=== PATIENT | female | born 1990 | race Caucasian/White ===

== ENCOUNTER 2019-09-26 16:23 | Emergency (ER) | payer SELFPAY ==
[~2019-09-26] VITALS: Ht 167.6 cm; Wt 59.0 kg
[2019-09-26 22:51] VITALS: BP 110/60
== END 2019-09-26 22:51 | DRG 880 ==
LOC: ED 16:23
DX: F41.0 Panic disorder [episodic paroxysmal anxiety] (principal); F15.10 Other stimulant abuse, uncomplicated; F17.210 Nicotine dependence, cigarettes, uncomplicated
CPT/HCPCS: J2060